=== PATIENT | male | born 1990 | race Two or more races ===

== ENCOUNTER 2018-01-04 08:23 | Emergency (ER) | payer MEDICAID ==
[~2018-01-04] VITALS: Ht 182.9 cm; Wt 131.1 kg
[2018-01-04 08:32] VITALS: Ht 182.9 cm; Wt 131.1 kg
[2018-01-04 10:13] LABS: BASOPHIL % 0.1 % (0-2); PLATELET COUNT 295 x10^3mcL (130-400); RED CELL DISTRIBUTION WIDTH 13.1 % (11.5-14.5)
[2018-01-04 10:27] LABS: CALCIUM 8.5 mg/dL (8.5-10.1); CARBON DIOXIDE 28.6 mmol/L (21-32); CHLORIDE SERUM 107 mmol/L (98-107); CREATININE SERUM 0.9 mg/dL (0.7-1.3); GFR1 > 60 mL/min; GLUCOSE SERUM 127 mg/dL (74-106); SODIUM SERUM 141 mmol/L (136-145)
[2018-01-04 10:31] LABS: ALBUMIN 3.8 g/dL (3.4-5.0); ALKALINE PHOSPHATASE 75 U/L (46-116); ALT/SGPT 69 U/L (16-63); AMYLASE 58 U/L (25-115); AST/SGOT 26 U/L (15-37); BILIRUBIN TOTAL 0.3 mg/dL (0.20-1.00); LIPASE 98 IU/L (73-393); TOTAL PROTEIN, SERUM 7.4 g/dL (6.4-8.2)
[2018-01-04 11:01] LABS: AMPHETAMINE QUAL UR NONE DETECTED (NEG <=1000)
[2018-01-04 13:10] VITALS: BP 128/66
== END 2018-01-04 13:10 | disposition home or self-care (01) ==
LOC: ED 08:23
PROVIDERS: Emergency Medicine
DX: K80.20 Calculus of gallbladder without cholecystitis without obstruction (principal)
CPT/HCPCS: 83880; J1885; J2405; J7030; Q0092

== ENCOUNTER 2019-04-01 14:46 | Emergency (ER) | payer OTHER, BC ==
[~2019-04-01] VITALS: Ht 182.9 cm; Wt 115.2 kg
[2019-04-01 15:00] VITALS: BP 128/85; Ht 182.9 cm; Wt 115.2 kg
== END 2019-04-01 17:33 | disposition home or self-care (01) ==
LOC: ED 14:46
DX: R51 Headache (principal); H60.91 Unspecified otitis externa, right ear; H72.91 Unspecified perforation of tympanic membrane, right ear; J45.909 Unspecified asthma, uncomplicated
CPT/HCPCS: J1885